=== PATIENT | male | born 1995 | race Caucasian/White ===

== ENCOUNTER 2017-06-27 16:05 | Emergency (ER) | payer BC ==
[~2017-06-27] VITALS: Ht 185.4 cm; Wt 85.0 kg
[2017-06-27 16:05] VITALS: Ht 185.4 cm; Wt 85.0 kg
[2017-06-27] MEDS ORDERED: IBUPROFEN 600 MG TAB PO STA (16:12)
[2017-06-27] MEDS ORDERED: BUPIVACAINE 0.5 % 5 MG/1 ML MPF 30ML VIAL INFIL ONE (16:15)
[2017-06-27] MEDS ORDERED: XYLOCAINE 1%/SOD BICARB 20 ML VIAL INFIL ONE (16:15)
[2017-06-27] MEDS ORDERED: IBUP-1050 PO (16:20)
[2017-06-27] MEDS ORDERED: MULT-513 PO (16:20)
--- NOTE | 2017-06-27 17:03 | DIAGNOSTIC IMAGING REPORT ---
LEFT MIDDLE FINGER 3 VIEWS HISTORY: LEFT 3ND FINGER, LACERATION COMPARISON: None. FINDINGS: Soft tissue laceration at the distal tip of the middle finger. Slightly comminuted and mildly distracted fracture at the distal tuft. This does not extend to the DIP joint. No dislocation. No radiopaque foreign bodies. IMPRESSION: Slightly comminuted and mildly distracted fracture at the distal tuft of the left middle finger with overlying soft tissue laceration. Electronically signed by: Dony Marcelo M.D. 06/27/2017 5:01 PM Dictated Date/Time: 06/27/2017 5:00 PM
[2017-06-27] MEDS ORDERED: CEPH500C2 PO (17:25)
--- NOTE | 2017-06-27 17:26 | EMERGENCY ROOM VISIT NOTE ---
ED Visit Note First contact with patient: 16:03 CHIEF COMPLAINT: Left third finger crush injury HISTORY OF PRESENT ILLNESS: Patient is a a [id number] 22-year-old white male who presents the emergency department by BLS ambulance for evaluation of a crush injury to the left third finger that he sustained about 20 minutes ago. He was weightlifting at the building on campus, and accidentally crushed his left third finger between the barbell and the support. Laceration was noted to the finger pad. A dressing was applied and he was brought to the ED. He notes a mild, throbbing pain that he rates a 6/10. Denies weakness or numbness of the finger. REVIEW OF SYSTEMS: Review of systems as per HPI. All other systems reviewed were negative. At least 6 systems reviewed. T weight change. PMH: Electronic medical records are reviewed and summarized as above/below. See Problem List. His tetanus is up-to-date. SOCIAL HISTORY: Patient is a college student who lives in the [facility]. Smoker. Social alcohol use. PHYSICAL EXAM: Vital Signs: Reviewed Nurse's notes. There is a stellate, 2 cm laceration on the finger pad of the left third finger. The edges gape apart with traction. There is no foreign material in the wound and it looks clean. There is no bleeding. No deep structures such as tendons or nerves are seen in the base of the wound. Flexion and extension of the finger is full and strong at the DIP and PIP.The patient does have some bruising under the nail bed, but bleeding is able to be drained, there is no collected subungual hematoma which requires trephination. EMERGENCY DEPARTMENT COURSE: The patient was medicated with ibuprofen 600 mg orally for discomfort. X-rays of the finger were obtained, noting a tuft fracture of the distal phalanx. Using sterile technique, the finger was prepped with Betadine and a digital block was performed using a 2:1 mixture of 1% plain buffered lidocaine and 0.5% Sensorcaine. When adequate anesthesia was obtained, the entire finger was prepped with Betadine and the finger pad was irrigated copiously using normal saline solution. The laceration was probed, and I could not visualize, nor palpate the distal phalanx in the base of the wound. The laceration was repaired using a total of 9, 5-0 nylon sutures. Wound care measures were discussed with the patient. Wound was cleansed and dressed with bacitracin and a light dressing, and a metal fingertip cage was applied. Patient will be placed on Keflex given the suspected open fracture. He does not have any evidence for flexor tendon injury. Possibility of a nail bed laceration was discussed, however his nail is very well seated on the nailbed, and it was not felt that there would be any added benefit to removing the nail and repairing the nailbed laceration and there would be increased trauma to the finger because of the nail removal. Patient expressed understanding of this and was in agreement. Medication reconciliation: I attest that I have personally reviewed the patient' s current medication list. Blood pressure screening : Patient was found to have normal blood pressure on screening and does not require follow-up. LEFT MIDDLE FINGER 3 VIEWS HISTORY: LEFT 3ND FINGER, LACERATION COMPARISON: None. FINDINGS: Soft tissue laceration at the distal tip of the middle finger. Slightly comminuted and mildly distracted fracture at the distal tuft. This does not extend to the DIP joint. No dislocation. No radiopaque foreign bodies. IMPRESSION: Slightly comminuted and mildly distracted fracture at the distal tuft of the left middle finger with overlying soft tissue laceration. Current/Historical Medications Scheduled Cephalexin Monohydrate (Keflex), 500 MG PO QID Multivitamins/Minerals (Mvi With Minerals), 1 TAB PO DAILY Scheduled PRN Ibuprofen (Advil), 400 MG PO PRN UD PRN for Headache or Pain Allergies Coded Allergies: No Known Allergies (Unverified , 06/27/17) Vital Signs Date Time Temp Pulse Resp B/P (MAP) Pulse Ox O2 Delivery O2 Flow Rate FiO2 06/27/17 17:34 36.6 78 18 124/86 98 06/27/17 17:23 78 18 124/86 98 Room Air 06/27/17 16:05 36.6 82 18 139/91 98 Room Air Medications Administered Medications (Trade) Dose Ordered Sig/Bentley Route Start Time Stop Time Status Last Admin Dose Admin Ibuprofen (Motrin Tab) 600 mg NOW STAT PO 06/27/17 16:12 06/27/17 16:14 DC 06/27/17 16:18 600 MG Departure Information Impression Primary Impression: Open fracture of tuft of distal phalanx of finger Additional Impression: Finger laceration Prescriptions Cephalexin Monohydrate (KEFLEX) 500 Mg Cap 500 MG PO QID, #40 CAP Prov: Madelaine Jean PA 06/27/17 Referrals [facility] (PCP) Patient Instructions [facility] Additional Instructions Keep wound clean and dry. Do not allow any crusting or dried blood to accumulate on sutures. Clean gently with mild soap and water daily. Use an antibiotic ointment for 3-4 days, then let wound dry. Suture removal in 10-12 days. Return sooner for any signs of infection (increasing redness, swelling, drainage). Ice and elevate for swelling and pain. Wear the metal finger splint for support and protection. Ibuprofen(Motrin, Advil) may be used for fever or pain. Use 600mg every six hours as needed. Take with food. Avoid using more than 2400mg in a 24 hour period. Do not use 2400mg per day for more than three consecutive days without physician direction. Prolonged inappropriate use can lead to stomach upset or ulcers. (AND/OR) Acetaminophen(Tylenol) may be used for fever or pain. Use 1000mg every six hours as needed. Avoid using more than 3000mg in a 24 hour period. Cephalexin(Keflex) 500mg: Take one pill four times daily for 10 days to prevent infection. All antibiotics can cause diarrhea. If this occurs and you feel worse or it does not resolve in 1-2 days follow up with your doctor or return to the Emergency Department as this could be signs of serious underlying problems. Any medication can cause an allergic reaction, stop the pills immediately and return to the ER for rash, hives, breathing difficulties, or swelling. Problem Qualifiers Additional Impression: Finger laceration Encounter type: initial encounter Finger: middle finger Damage to nail status: without damage Foreign body presence: without foreign body Laterality: left Qualified Codes: S61.213A - Laceration without foreign body of left middle finger without damage to nail, initial encounter
[2017-06-27 17:34] VITALS: BP 124/86; PULSE 78; TEMP 36.6; O2SAT 98
== END 2017-06-27 17:35 | disposition home or self-care (01) ==
LOC: C.EDD 16:07
DX: S62.633B Displaced fracture of distal phalanx of left middle finger, initial encounter for open fracture (principal); S61.213A Laceration without foreign body of left middle finger without damage to nail, initial encounter; W23.0XXA Caught, crushed, jammed, or pinched between moving objects, initial encounter; Y93.B3 Activity, free weights; Y99.8 Other external cause status; Y92.89 Other specified places as the place of occurrence of the external cause; F17.200 Nicotine dependence, unspecified, uncomplicated

== ENCOUNTER 2017-07-09 17:20 | Emergency (ER) | payer BC ==
[~2017-07-09 17:20] MED LIST: CEPH500C2 PO; IBUP-1050 PO; MULT-513 PO
[2017-07-09 17:31] VITALS: BP 141/78; PULSE 86; TEMP 36.6; O2SAT 99
--- NOTE | 2017-07-09 18:42 | EMERGENCY ROOM VISIT NOTE ---
History First contact with patient: 17:32 Chief Complaint: SUTURE/STAPLE REMOVAL Stated Complaint: STICHES REMOVED Nursing Triage Summary: Left middle finger needs the sutures removed. Relates no problems. History of Present Illness The patient is a 22 year old male who presents to the Emergency Room for suture removal from a left third finger laceration repair 12 days ago in our department. The patient had an open fracture on x-ray. He was provided a prescription for Keflex, and has completed all antibiotics. The patient denies any wound complications except for scabbing that he was unable to keep clean since his initial visit. He denies any pain. Review of Systems 6 system review was performed and was negative except for pertinent positives and negatives as indicated in history of present illness Past Medical/Surgical History Medical Problems: (1) No Known Active Medical Problems Family History Unremarkable Social History Smoking Status: Never Smoker Alcohol Use: occasionally Marital Status: single Occupation Status: [employer] student Current/Historical Medications Scheduled Cephalexin Monohydrate (Keflex), 500 MG PO QID Multivitamins/Minerals (Mvi With Minerals), 1 TAB PO DAILY Scheduled PRN Ibuprofen (Advil), 400 MG PO PRN UD PRN for Headache or Pain Physical Exam Vital Signs Date Time Temp Pulse Resp B/P (MAP) Pulse Ox O2 Delivery O2 Flow Rate FiO2 4/16/18 17:31 36.6 86 20 141/78 99 Room Air Pain Rating (0-10): 0 Physical Exam CONSTITUTIONAL: Healthy and well nourished. MUSCULOSKELETAL: Examination of the left third finger shows a scabbed wound over the fingertip. Nylon sutures are noted with the knots around the outer periphery of the wound. No fluctuance, drainage or bleeding noted. Capillary refill of the fingertip is less than 2 seconds. INTEGUMENTARY: No rash or other significant dermatologic conditions noted. NEUROLOGIC: Left third fingertip is sensory intact. Medical Decision & Procedures ED Course Patient history and physical exam were performed. Nurse's notes were reviewed. Vital signs were reviewed and were normal. Suture removal was very difficult because of the scabbing. The endloop was actually situated over the central wound region, which again was scabbed over. I did have to do some debridement of this tissue in order to remove the sutures. 3 of the sutures could not be found, and I was concerned that the wound would open with any further aggressive debridement. 3 kn were cut off, and the patient was advised that as the wound heals, he will likely see the ends of the sutures. He may simply grab them with tweezers and remove them. He was instructed to return to the emergency department for any worsening wound condition, including redness, swelling, pain or drainage. The patient voiced understanding of all discharge instructions, and denied any significant discomfort at the time of discharge. Medical Decision Blood Pressure Screening Patient's blood pressure: Normal blood pressure Impression Primary Impression: Encounter for removal of sutures Additional Impression: Laceration of left middle finger Departure Information Dispostion Home / Self-Care Condition GOOD Forms HOME CARE DOCUMENTATION FORM, IMPORTANT VISIT INFORMATION Patient Instructions [facility] Additional Instructions Continue to keep wound covered with an antibiotic ointment and dressing to keep the scab softened. As the wound continues to heal, you will likely find the remaining sutures that could not be removed on today's visit. Simply grab them with a pair of tweezers and pull them out. Return to the emergency department as needed for any further wound concerns. Problem Qualifiers Additional Impression: Laceration of left middle finger Encounter type: subsequent encounter Damage to nail status: without damage Foreign body presence: without foreign body Qualified Codes: S61.213D - Laceration without foreign body of left middle finger without damage to nail, subsequent encounter
== END 2017-07-09 18:02 | disposition home or self-care (01) ==
LOC: C.EDB 17:21 → C.EDD 18:02
DX: S61.213D Laceration without foreign body of left middle finger without damage to nail, subsequent encounter (principal); X58.XXXD Exposure to other specified factors, subsequent encounter